=== PATIENT | female | born 1985 | race Caucasian/White ===

== ENCOUNTER 2020-10-15 02:41 | Emergency (ER) | payer OTHER ==
[~2020-10-15] VITALS: Ht 167.6 cm; Wt 85.0 kg
[2020-10-15 02:54] VITALS: BP 143/88
--- NOTE | 2020-10-15 02:58 | PHYS DOC ---
Adult General Chief Complaint Chief Complaint: CHEST PAIN HPI HPI Patient is a 35-year-old female, otherwise healthy, non-smoker who denies any alcohol or drug use who presents with a chief complaint of right arm and shoulder numbness, tingling with a little radiation into her upper right chest. States she woke up about an hour ago, after sleeping on her right side with this discomfort patient says it is about a 5 out of 10 initially, and is almost gone here in the emergency department. States she thought she may have slept wrong but got worried and want to come into the emergency department to make sure she was not having a heart attack. Denies any medical history, cardiac history or family cardiac history. Denies any recent travel, illnesses, fevers, actual chest pain, shortness of breath, abdominal pain, nausea, vomiting. Denies any dyspnea on exertion, orthopnea, PND or edema. States she is not on any medications for anything. Review of Systems Review of Systems Review of systems otherwise unremarkable except noted in HPI Physical Exam Physical Exam Constitutional: Well developed, well nourished, no acute distress, non-toxic appearance. [] HENT: Normocephalic, atraumatic, bilateral external ears normal, oropharynx moist, no oral exudates, nose normal. [] Eyes: conjunctiva normal, no discharge. [] Neck: Normal range of motion, no tenderness, supple, no stridor. [] Cardiovascular:Heart rate regular rhythm, no murmur [] Lungs & Thorax: Bilateral breath sounds clear to auscultation [] Abdomen: soft, no tenderness, no masses, no pulsatile masses. [] Skin: Warm, dry, no erythema, no rash. [] Back: No tenderness, Extremities: No tenderness, no cyanosis, no clubbing, ROM intact, no edema. [] Neurologic: Alert and oriented X 3, normal motor function, normal sensory function, no focal deficits noted. [] Psychologic: Affect normal, judgement normal, mood normal. [] Current Patient Data Lab Results Laboratory Tests Test 10/15/20 03:05 10/15/20 03:19 Troponin I Quantitative < 0.017 ng/mL (0-0.055) Bedside Urine HCG, Qualitative hcg negative (Negative) EKG EKG EKG with a rate of 69, QRS of 76, QTc of 376, no STEMI. Completely normal EKG. [] Radiology/Procedures Radiology/Procedures Chest x-ray with no consolidation, pneumothorax and normal cardiac silhouette [] Heart Score HEART Score for Chest Pain: HEART Score for Chest Pain Response (Comments) Value History Slighlty/Non-Suspicious 0 ECG Normal 0 Age < 45 0 Risk Factors No Risk Factors 0 Troponin < Normal Limit 0 Total 0 Risk Factors: Risk Factors: DM, Current or recent (<one month) smoker, HTN, HLP, family history of CAD, obesity. Risk Scores: Risk Factors: DM, Current or recent (<one month) smoker, HTN, HLP, family history of CAD, obesity. Course & Med Decision Making Course & Med Decision Making Patient is a 35-year-old female who presents with right arm and shoulder numbness and tingling, after waking up laying on Vital signs not concerning. Physical exam noted above. EKG completely normal and noted above. Troponin normal. Chest x-ray normal. Normal troponin. negative. While in the emergency department patient symptoms resolved. Advised to follow- up with primary care soon as she can. Gave strict return precautions to the ED. Patient grateful, verbalized understanding and agreed with plan of discharge. [] Dragon Disclaimer Dragon Disclaimer This electronic medical record was generated, in whole or in part, using a voice recognition dictation system. Departure Departure: Impression: Primary Impression: Tingling of right upper extremity Disposition: 01 DC HOME SELF CARE/HOMELESS Condition: GOOD Referrals: ALEKSANDR HATHAWAY MD Patient Instructions: Pain, Neuropathic Additional Instructions: Please read all the attached information. Your EKG and troponin which looks at your heart was normal. Your chest x-ray was normal. And you are not . Please follow-up as soon as you can with your primary care physician to set up a follow-up visit. Please come back to the ED with new or concerning symptoms. LISET HARDWICK MD Oct 15, 2020 02:58
--- NOTE | 2020-10-15 03:50 | RAD ---
Study: XR CHEST 1V Indication: Arm pain. Comparison: None. Findings: The cardiomediastinal silhouette and adam are within normal limits. No focal airspace opacity, pleura l effusion or pneumothorax. Unremarkable osseous structures and partially imaged upper abdomen. Impression: No acute radiographic abnormality of the chest. Electronically signed by: FRANCISCO LAZAR MD (10/15/2020 3:48 AM) [facility] [place]
--- NOTE | 2020-10-15 03:59 | EKG ---
[facility] ED [facility] [place] [id number] Test Date: 2020-10-15 Test Time: 02:53:49 Pat Name: FRANK REINOSO Department: Room: Gender: F Restorative Coordinator: : 1985 Requested By: LISET HARDWICK Order Number: [id number] Reading MD: Measurements Intervals [place] Rate: 69 P: 39 SC: 164 QRS: 10 QRSD: 76 T: -6 QT: 350 QTc: 376 Interpretive Statements SINUS RHYTHM NORMAL ECG RI6.02 No previous ECG available for comparison
== END 2020-10-15 04:00 | disposition home or self-care (01) ==
LOC: ER 02:41
DX: R20.2 Paresthesia of skin (principal)
CPT/HCPCS: 36415; 71045; 81025; 84484; 93005; 99285